=== PATIENT | male | born 1970 | race Caucasian/White ===

== ENCOUNTER 2016-12-17 00:32 | Emergency (ER) | payer MEDICAID, OTHER ==
[~2016-12-17] VITALS: Ht 170.2 cm; Wt 69.5 kg
[~2016-12-17 00:32] MED LIST: CARAS PO; LORA-441 PO; RANI300T PO; SERT50TA6 PO; TRAM50TA2 PO
[2016-12-17 00:34] VITALS: Ht 170.2 cm; Wt 69.5 kg
--- NOTE | 2016-12-17 04:10 | ERA ---
ER Documentation Chief Complaint Date/Time DATE: 12/17/16 TIME: 04:09 Chief Complaint upper abd pain radaiting to back x 3 days HPI The patient is a 46-year-old male, presenting to the ER because of diffuse abdominal pain for 3 days, associated with constipation. He has similar symptoms previously, run out of his GERD medication. He denies fever, chills, neck pain, chest pain, dyspnea, vomiting, dysuria. He does not smoke or drink Past medical history: History of colon cancer status post chemotherapy 10 years ago, GERD Past surgical history: Abdominal surgery due to colon cancer ROS All systems reviewed and are negative except as per history of present illness. Medications Home Meds Active Scripts Polyethylene Glycol* (Miralax*) 17 Gm Powd.pack, 17 GM PO DAILY, #7 Prov:NEHA BURNS MD 12/17/16 Pantoprazole* (Protonix*) 40 Mg Tablet.dr, 40 MG PO DAILY, #20 TAB Prov:NEHA BURNS MD 12/17/16 Ranitidine Hcl* (Ranitidine Hcl*) 300 Mg Tablet, 300 MG PO DAILY, #30 TAB Prov:GABE FREY DO 12/20/15 Sucralfate* (Carafate*) 1 Gm/10 Ml Susp, 1 GM PO QID, #20 EA Prov:GABE FREY DO 12/20/15 Lorazepam* (Ativan*) 0.5 Mg Tablet, 0.5 MG PO Q8, #10 Prov:ALE NATION PA-C 08/28/15 Reported Medications Sertraline Hcl* (Sertraline Hcl*) 50 Mg Tablet, 50 MG PO DAILY, TAB 09/19/14 Tramadol HCl (Tramadol HCl) 50 Mg Tab, 50 MG PO TID Y for PAIN, TAB 09/19/14 Lorazepam* (Ativan*) 0.5 Mg Tablet, 0.5 MG PO HS Y for ANXIETY, TAB 08/20/14 Allergies Allergies: Coded Allergies: morphine (Verified Allergy, Unknown, RASH, 09/19/14) PMhx/Soc History of Surgery: Yes (colon ca) Anesthesia Reaction: No Hx Neurological Disorder: No Hx Respiratory Disorders: No Hx Cardiac Disorders: No Hx Psychiatric Problems: No Hx Miscellaneous Medical Probl: Yes (ANXIETY) Hx Alcohol Use: No Hx Substance Use: No Hx Tobacco Use: No Physical Exam Vitals Vital Signs Date Time Temp Pulse Resp B/P Pulse Ox O2 Delivery O2 Flow Rate FiO2 12/17/16 05:00 65 18 133/77 100 Room Air 12/17/16 04:25 97.5 56 20 135/88 100 Room Air 12/17/16 00:34 97.8 68 20 139/86 99 Physical Exam Const: No acute distress. Head: Atraumatic. Eyes: Normal Conjunctiva. ENT: Normal External Ears, Nose and Mouth. Neck: Full range of motion. No meningismus. Resp: Clear to auscultation bilaterally. Cardio: Regular rate and rhythm, no murmurs. Abd: Soft, non distended, normal bowel sounds, vague and diffuse abdominal tenderness, no rigidity, rebound, CVA tenderness Skin: No petechiae or rashes. Back: No midline or flank tenderness. Ext: No cyanosis, or edema. Neur: Awake and alert. No focal deficit Psych: Normal Mood and Affect. Result Diagram: 12/17/16 0435 12/17/16 0435 Results 24 hrs Laboratory Tests Test 12/17/16 04:35 12/17/16 04:52 Alanine Aminotransferase (ALT/SGPT) 31IU/L Albumin 4.3g/dl Albumin/Globulin Ratio 1.34 Alkaline Phosphatase 83IU/L Anion Gap 16 Aspartate Amino Transf (AST/SGOT) 29IU/L Basophils # 0.010^3/ul Basophils % 0.5% Blood Urea Nitrogen 15mg/dl Calcium Level 9.0mg/dl Carbon Dioxide Level 29mmol/L Chloride Level 102mmol/L Creatinine 0.99mg/dl Direct Bilirubin 0.00mg/dl Eosinophils # 0.310^3/ul Eosinophils % 3.4% Globulin 3.20g/dl Glucose Level 87mg/dl Hematocrit 45.8% Hemoglobin 15.4g/dl Indirect Bilirubin 1.4mg/dl Lipase 71U/L Lymphocytes # 2.810^3/ul Lymphocytes % 37.4% Mean Corpuscular Hemoglobin 28.7pg Mean Corpuscular Hemoglobin Concent 33.6g/dl Mean Corpuscular Volume 85.3fl Mean Platelet Volume 9.7fl Monocytes # 0.710^3/ul Monocytes % 9.2% Neutrophils # 3.610^3/ul Neutrophils % 49.2% Nucleated Red Blood Cells # 0.010^3/ul Nucleated Red Blood Cells % 0.0/100WBC Platelet Count 36109^3/UL Potassium Level 4.1mmol/L Red Blood Count 5.3710^6/ul Red Cell Distribution Width 12.1% Sodium Level 143mmol/L Total Bilirubin 1.4mg/dl Total Protein 7.5g/dl White Blood Count 7.410^3/ul Bedside Urine Blood Negative Bedside Urine Glucose (UA) Negative Bedside Urine Ketones (LAB) Negative Bedside Urine Leukocyte Esterase (L Negative Bedside Urine Nitrite (LAB) Negative Bedside Urine Protein (LAB) Negative Bedside Urine pH (LAB) 5.5 Current Medications Medications (Trade) Dose Ordered Sig/[place] Route PRN Reason Start Time Stop Time Status Last Admin Dose Admin Hydromorphone HCl (Dilaudid) 1 mg ONCE STAT IV 12/17/16 04:28 12/17/16 04:30 DC 12/17/16 04:42 Ondansetron HCl (Zofran Inj) 4 mg ONCE STAT IV 12/17/16 04:28 12/17/16 04:30 DC 12/17/16 04:42 Procedures/[place] [id number] Radiology Main Line: [phone] DIAGNOSTIC IMAGING REPORT Patient: TYRONE RODRIGUEZ : 1970 Age: 46 Sex: M MR #: [id number] DOS: 12/17/16 0428 Ordering MD: NEHA BURNS MD Location: E/R Room/Bed: PROCEDURE: CT Abdomen and Pelvis without contrast. CLINICAL INDICATION: Abdominal pain. TECHNIQUE: Routine axial tomographic images of the abdomen and pelvis were obtained from the domes of the diaphragm to the symphysis pubis. The patient was scanned withoutoral or intravenous contrast. Coronal and sagittal reformatted images were obtained from the axial source images. Images were reviewed on a high-resolution PACS workstation. The total exam CTDI equals 6.74 mGy and the total exam DLP equals 411.36 mGy-cm. One or more of the following dose reduction techniques were used: Automated exposure control, adjustment of the mA and / or kV according to patient size, or use of iterative reconstruction technique. COMPARISON: CT abdomen and pelvis dated 09/19/2014 FINDINGS: The visualized portions of the lung bases demonstrate mild bilateral basilar atelectasis. Evaluation of the intra-abdominal solid organs is somewhat limited on this noncontrast examination. The liver appears normal in size. There is no intra or extrahepatic biliary dilatation. The gallbladder is unremarkable by CT criteria. The spleen, pancreas, and adrenal glands are unremarkable. The kidneys are symmetric in size. No renal, ureteral, or bladder calculi are identified. No perinephric inflammatory changes are identified. The urinary bladder is grossly unremarkable. The bowel demonstrates normal course and caliber. There is no evidence of bowel obstruction. The appendix is normal in appearance. Postsurgical changes from partial left hemicolectomy are noted within anastomotic suture material. No intraperitoneal free fluid, free air or abscess is identified. Calcifications are seen within the central portion of the prostate. No retroperitoneal, mesenteric, or inguinal lymphadenopathy is identified. The aorta is normal in caliber. The osseous structures demonstrate a right L5 pars defect. No significant subcutaneous soft tissue abnormalities are seen. IMPRESSION: 1. Limited, noncontrast CT of the abdomen and pelvis. No acute intra- abdominal abnormality identified. No significant interval change. 2. Right L5 pars defect. RPTAT: HH .Shayy Yu MD, MD Date Time Electronically viewed and signed by .Shayy Yu MD, on 12/17/2016 05 :14 .G/ CC: NEHA BURNS MD MEDICAL MAKING DECISION: The patient is a 46-year-old male, presenting with acute abdominal pain, acute constipation. He was treated with morphine 4 mg IV for pain, Zofran 4 mg IV for nausea with good response.. The differential diagnoses considered include but are not limited to cholelithiasis, cholecystitis, cystitis, pancreatitis, hepatitis, gastritis, peptic ulcer disease, gastric ulcer, appendicitis, diverticulitis, cholangitis, choledocholithiasis, partial small bowel obstruction. Departure Diagnosis: Primary Impression: Abdominal pain Additional Impression: Constipation Condition: Good Comments He was discharged with Protonix and MiraLAX I discussed the findings with the patient. I advised the patient to follow-up with the primary physician in about 1-2 days, sooner if needed and return if any concern. The patient's blood pressure was elevated (>120/80) but appears stable without evidence of hypertension emergency or urgency. The patient was counseled about the risks of hypertension and urged to pursue outpatient monitoring and therapy within a week with their primary care physician. NEHA BURNS MD Dec 17, 2016 04:10
[2016-12-17 04:25] VITALS: TEMP 97.5
[2016-12-17] MEDS ORDERED: ONDANSETRON 4 MG INJ IV STA (04:28)
[2016-12-17] MEDS ORDERED: HYDROmorphONE 1 MG/ML SYG IV STA (04:28)
[2016-12-17 04:50] LABS: URINE BLOOD (Dip) POC Negative (NEGATIVE)
[2016-12-17 05:00] VITALS: BP 133/77; PULSE 65; RESP 18
[2016-12-17 05:00] LABS: ADD SCAN DIFF NO
[2016-12-17 05:06] LABS: BASOPHILS % 0.5 % (0.0-2.0); EOSINOPHILS # 0.3 10^3/ul (0.0-0.5); EOSINOPHILS % 3.4 % (0.0-7.0); HEMATOCRIT 45.8 % (42.0-52.0); HEMOGLOBIN 15.4 g/dl (14.0-18.0); LYMPHOCYTES # 2.8 10^3/ul (0.8-2.9); LYMPHOCYTES % 37.4 % (15.0-51.0); MEAN CORPUSCULAR HEMOGLOBIN 28.7 pg (29.0-33.0); MEAN CORPUSCULAR HGB CONC 33.6 g/dl (32.0-37.0); MEAN CORPUSCULAR VOLUME 85.3 fl (82.0-101.0); MEAN PLATELET VOLUME 9.7 fl (7.4-10.4); MONOCYTE # 0.7 10^3/ul (0.3-0.9); MONOCYTES % 9.2 % (0.0-11.0); NEUTROPHIL # 3.6 10^3/ul (1.6-7.5); NEUTROPHILS % 49.2 % (39.0-77.0); PLATELET COUNT 236 10^3/UL (140-415); RED BLOOD COUNT 5.37 10^6/ul (4.70-6.10); RED CELL DISTRIBUTION WIDTH 12.1 % (11.5-14.5); WHITE BLOOD COUNT 7.4 10^3/ul (4.8-10.8)
[2016-12-17 05:14] LABS: ALBUMIN 4.3 g/dl (3.3-4.9)
[2016-12-17 05:15] LABS: POTASSIUM 4.1 mmol/L (3.5-5.1)
--- NOTE | 2016-12-17 05:15 | RADRPT ---
PROCEDURE: CT Abdomen and Pelvis without contrast. CLINICAL INDICATION: Abdominal pain. TECHNIQUE: Routine axial tomographic images of the abdomen and pelvis were obtained from the domes of the diaphragm to the symphysis pubis. The patient was scanned withoutoral or intravenous contra st. Coronal and sagittal reformatted images were obtained from the axial source images. Images were reviewed on a high-resolution PACS workstation. The total exam CTDI equals 6.74 mGy and the total e xam DLP equals 411.36 mGy-cm. One or more of the following dose reduction techniques were used: Au tomated exposure control, adjustment of the mA and / or kV according to patient size, or use of iter ative reconstruction technique. COMPARISON: CT abdomen and pelvis dated 09/19/2014 FINDINGS: The visualized portions of the lung bases demonstrate mild bilateral basilar atelectasis. Evaluat ion of the intra-abdominal solid organs is somewhat limited on this noncontrast examination. The li arnulfo appears normal in size. There is no intra or extrahepatic biliary dilatation. The gallbladder is unremarkable by CT criteria. The spleen, pancreas, and adrenal glands are unremarkable. The kidneys are symmetric in size. No renal, ureteral, or bladder calculi are identified. No perine phric inflammatory changes are identified. The urinary bladder is grossly unremarkable. The bowel demonstrates normal course and caliber. There is no evidence of bowel obstruction. The a ppendix is normal in appearance. Postsurgical changes from partial left hemicolectomy are noted wit hin anastomotic suture material. No intraperitoneal free fluid, free air or abscess is identified. Calcifications are seen within the central portion of the prostate. No retroperitoneal, mesenteric , or inguinal lymphadenopathy is identified. The aorta is normal in caliber. The osseous structures demonstrate a right L5 pars defect. No significant subcutaneous soft tissue abnormalities are seen. IMPRESSION: 1. Limited, noncontrast CT of the abdomen and pelvis. No acute intra-abdominal abnormality identif ied. No significant interval change. 2. Right L5 pars defect. RPTAT: HH .Shayy Yu MD, Date Time Electronically viewed and signed by .Shayy Yu MD, on 12/17/2016 05:14 .G/
[2016-12-17 05:17] LABS: ALBUMIN/GLOBULIN RATIO 1.34; BILIRUBIN,INDIRECT 1.4 mg/dl (0-1.1); BILIRUBIN,TOTAL 1.4 mg/dl (0.2-1.3); CREATININE 0.99 mg/dl (0.61-1.24); TOTAL PROTEIN 7.5 g/dl (6.1-8.1)
[2016-12-17] MEDS ORDERED: PANT40TA3 PO (05:47)
[2016-12-17] MEDS ORDERED: POLY17PO6 PO (05:47)
== END 2016-12-17 06:06 | disposition home or self-care (01) ==
LOC: E/R 00:32
DX: R10.84 Generalized abdominal pain (principal); K59.00 Constipation, unspecified; R11.0 Nausea; Z85.038 Personal history of other malignant neoplasm of large intestine
CPT/HCPCS: 36415; 74176; 80053; 81003; 83690; 85025; 96374; 96375; J1170; J2405; Z7502; Z7610

== ENCOUNTER 2018-03-04 19:20 | Emergency (ER) | END 2018-03-04 23:47 | disposition home or self-care (01) ==

== ENCOUNTER 2018-04-18 05:54 | Day surgery (SDC) | END 2018-04-18 11:46 | disposition home or self-care (01) ==